=== PATIENT | male | born 1955 | race Two or more races ===

== ENCOUNTER 2022-06-03 07:25 | Emergency (ER) | payer OTHER ==
[~2022-06-03] VITALS: Ht 163.8 cm; Wt 64.4 kg
== END 2022-06-03 09:36 | disposition home or self-care (01) ==
LOC: ER 07:25
DX: T15.02XA Foreign body in cornea, left eye, initial encounter (principal); W45.8XXA Other foreign body or object entering through skin, initial encounter; Y93.89 Activity, other specified; Y92.69 Other specified industrial and construction area as the place of occurrence of the external cause

== ENCOUNTER 2022-11-26 08:19 | Outpatient (CLI) | payer OTHER | END 2022-11-26 08:34 | disposition home or self-care (01) | LOC: TOM 08:19 | PROVIDERS: ATTEND Internal Medicine | DX: G44.89 Other headache syndrome (principal); M54.50 Low back pain, unspecified ==